=== PATIENT | female | born 1995 ===

== ENCOUNTER 2025-05-22 16:51 | Outpatient (REF) | payer SELFPAY ==
[2025-05-24 14:27] LABS: Chlamydia Result Invalid (Negative); GC Result Invalid (Negative)
== END 2025-05-22 16:52 | disposition home or self-care (01) ==
LOC: LBN 16:51
PROVIDERS: Visit Provider Physician Assistant Medical
DX: N89.8 Other specified noninflammatory disorders of vagina (principal)
CPT/HCPCS: 87491; 87591; 87480; 87510; 87660

== ENCOUNTER 2025-06-13 19:39 | Outpatient (REF) | payer SELFPAY ==
[2025-06-13 17:58] LABS: Hemoglobin A1C 6.1 % (<5.7)
== END 2025-06-13 19:40 | disposition home or self-care (01) ==
LOC: LBN 19:39
PROVIDERS: Visit Provider Physician Assistant Medical
DX: N89.8 Other specified noninflammatory disorders of vagina (principal); E11.9 Type 2 diabetes mellitus without complications
CPT/HCPCS: 83036; 87480; 87510; 87660

== ENCOUNTER 2025-07-08 11:19 | Outpatient (REF) | payer SELFPAY | END 2025-07-08 11:20 | disposition home or self-care (01) | LOC: LBN 11:19 | PROVIDERS: Visit Provider Obstetrics & Gynecology | DX: N89.8 Other specified noninflammatory disorders of vagina (principal) | CPT/HCPCS: 87480; 87510; 87660 ==

== ENCOUNTER 2025-10-17 23:25 | Emergency (ER) | payer SELFPAY ==
[2025-10-17 23:28] VITALS: BP 149/97; PULSE 103; RESP 18; TEMP 36.6; O2SAT 100
[2025-10-18] VITALS (17 sets, daily range): BP systolic 114–125; BP diastolic 52–90; PULSE 68–90; RESP 16–18; O2SAT 96–100
[2025-10-18] MEDS: Lactated Ringers 1,000 ML 1000 ML IV (00:15)
[2025-10-18 00:18] LABS: Abs Immature Grans 0.05 10^3/uL (0.0-0.06); HCT 49.0 % (36.0-46.0); HGB 16.5 g/dL (11.2-15.7); Immature Grans % 0.3 %; MCH 27.9 pg (27.0-33.0); MCHC 33.7 % (32.0-36.0); MCV 83 fL (80-95); MPV 10.7 fL (8.0-11.0); Platelet Count 311 10^3/uL (130-400); RBC 5.92 10^6/uL (3.93-5.22); RDW 12.6 % (11.7-14.6); RDW-SD 38.3 fL; WBC 15.91 10^3/uL (4.4-10.8)
[2025-10-18] MEDS: Ondansetron 4 MG/2 ML VIAL IVP (00:19)
[2025-10-18] MEDS: ACETAMINOPHEN 1,000 MG/100 ML BAG 400 MG IVPB (00:22)
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
[2025-10-18] MEDS: Normal Saline 1,000 ML 1000 ML IV (00:35)
[2025-10-18 00:36] LABS: Lipase 31 U/L (<53)
[2025-10-18 00:37] LABS: Magnesium 1.6 mg/dL (1.6-2.6)
[2025-10-18 00:38] LABS: ALT 43 U/L (10-49); AST 31 U/L (<34); Albumin 5.1 g/dL (3.2-5.0); Alkaline Phosphatase 80 U/L (46-116); Anion Gap 15.8 mmol/L (3-11); BUN 9 mg/dL (9-23); Bilirubin, Total 0.7 mg/dL (0.2-1.2); CO2 20.2 mmol/L (20.0-31.0); Calcium 9.8 mg/dL (8.3-10.6); Chloride 105 mmol/L (98-107); Glucose 200 mg/dL (74-106); Potassium 4.4 mmol/L (3.5-5.1); Sodium 141 mmol/L (136-145); Total Protein 8.6 g/dL (5.7-8.2)
[2025-10-18 00:57] LABS: BE (Venous) -2 mmol/L (-2-3); HCO3 (Venous) 22 mmol/L (23-28); O2 Sat (Venous) 66 %; TCO2 (Venous) 20 mmol/L (24-29); pCO2 (Venous) 34 mmHg (41-51); pO2 (Venous) 34 mmHg
[2025-10-18 02:24] LABS: COVID-19 PCR Negative (Negative); RSV PCR Negative (Negative)
[2025-10-18 02:59] LABS: Glucose Negative (Negative)
[2025-10-18 03:08] LABS: Anion Gap 10.3 mmol/L (3-11); BUN 9 mg/dL (9-23); CO2 21.7 mmol/L (20.0-31.0); Calcium 8.5 mg/dL (8.3-10.6); Chloride 108 mmol/L (98-107); Glucose 165 mg/dL (74-106); Potassium 4.4 mmol/L (3.5-5.1); Sodium 140 mmol/L (136-145)
[2025-10-18] MEDS: Ondansetron O.D.T. 4 MG TABEF, 3 TABS/BTL PO (03:50)
[2025-10-18] MEDS: Sucralfate 1 GM TAB PO (03:50)
== END 2025-10-18 04:00 | disposition home or self-care (01) ==
PROVIDERS: Emergency Provider Student in an Organized Health Care Education/Training Program
DX: E86.0 Dehydration (principal); R11.2 Nausea with vomiting, unspecified; R10.11 Right upper quadrant pain; R10.12 Left upper quadrant pain
CPT/HCPCS: 36415; 80048; 80053; 81025; 82805; 83690; 87637; 96361; 96374; 96375; 99291; 81003; 83605; 83735; 85025; J0131; J2405